=== PATIENT | female | born 1995 | race Asian ===

== ENCOUNTER 2022-12-05 12:20 | Emergency (ER) | payer OTHER ==
[~2022-12-05] VITALS: Ht 162.6 cm; Wt 52.2 kg
[2022-12-05 12:44] VITALS: BP 109/66; TEMP 98.7; O2SAT 100
[2022-12-05] MEDS ORDERED: NEOMY SULF/BACITRAC ZN/POLY 15 GM TUBE TP SCH (13:00)
== END 2022-12-05 13:30 | disposition home or self-care (01) ==
LOC: ER 12:26
DX: R51.9 Headache, unspecified (principal); Z60.2 Problems related to living alone; Z88.1 Allergy status to other antibiotic agents; V89.2XXA Person injured in unspecified motor-vehicle accident, traffic, initial encounter; Y93.89 Activity, other specified; Y92.89 Other specified places as the place of occurrence of the external cause; Y99.8 Other external cause status